=== PATIENT | male | born 1950 | race Caucasian/White ===

== ENCOUNTER 2020-09-04 06:39 | Outpatient (CLI) | payer MEDICARE, SELFPAY ==
[2020-09-04 07:38] LABS: Alanine Aminotransferase 22 U/L (4-50); Albumin Level 4.3 g/dL (3.5-5.1); Alkaline Phosphatase 67 U/L (38-126); Anion Gap 9 mmol/L (8-16); Aspartate Amino Transferase 28 U/L (17-59); Bilirubin,Total 0.6 mg/dL (0.2-1.3); Blood Urea Nitrogen 19 mg/dL (9-20); Calcium 9.8 mg/dL (8.4-10.2); Carbon Dioxide 27 mmol/L (22-30); Chloride 103 mmol/L (98-107); Cholesterol 101 mg/dL (0-200); Estimated Glomerular Filt Rate 60; Glucose 196 mg/dL (75-110); HDL Direct 37 mg/dL; Potassium 4.5 mmol/L (3.4-5.0); Sodium 139 mmol/L (137-145); Triglycerides 132 mg/dL (<150)
[2020-09-04 07:50] LABS: LDL Cholesterol Direct 47 mg/dL
[2020-09-04 07:56] LABS: Hemoglobin A1C 9.1 % (<5.7)
== END 2020-09-04 06:40 | disposition home or self-care (01) ==
PROVIDERS: PCP Emergency Medicine; Referring Provider Internal Medicine Cardiovascular Disease; Visit Provider Emergency Medicine
DX: E11.40 Type 2 diabetes mellitus with diabetic neuropathy, unspecified (principal)
CPT/HCPCS: 36415; 80053; 80061; 83036

== ENCOUNTER 2021-01-08 06:40 | Outpatient (CLI) | payer MEDICARE, SELFPAY ==
[2021-01-08 07:38] LABS: Alanine Aminotransferase 24 U/L (4-50); Albumin Level 4.2 g/dL (3.5-5.1); Alkaline Phosphatase 64 U/L (38-126); Anion Gap 8 mmol/L (8-16); Aspartate Amino Transferase 28 U/L (17-59); Bilirubin,Total 0.8 mg/dL (0.2-1.3); Blood Urea Nitrogen 17 mg/dL (9-20); Calcium 9.4 mg/dL (8.4-10.2); Carbon Dioxide 26 mmol/L (22-30); Chloride 102 mmol/L (98-107); Cholesterol 109 mg/dL (0-200); Estimated Glomerular Filt Rate > 60; Glucose 167 mg/dL (65-110); HDL Direct 32 mg/dL; Potassium 4.2 mmol/L (3.4-5.0); Sodium 136 mmol/L (137-145); Triglycerides 152 mg/dL (<150)
[2021-01-08 07:49] LABS: LDL Cholesterol Direct 49 mg/dL
[2021-01-08 08:14] LABS: Hemoglobin A1C 8.7 % (<5.7)
== END 2021-01-08 06:41 | disposition home or self-care (01) ==
PROVIDERS: PCP Emergency Medicine; Visit Provider Emergency Medicine
DX: E11.40 Type 2 diabetes mellitus with diabetic neuropathy, unspecified (principal)
CPT/HCPCS: 36415; 80053; 80061; 83036

== ENCOUNTER 2021-02-18 06:54 | Outpatient (CLI) | payer MEDICARE, SELFPAY ==
[2021-02-18 07:46] LABS: Alanine Aminotransferase 26 U/L (4-50); Albumin Level 4.3 g/dL (3.5-5.1); Alkaline Phosphatase 65 U/L (38-126); Anion Gap 10 mmol/L (8-16); Aspartate Amino Transferase 32 U/L (17-59); Bilirubin,Total 0.9 mg/dL (0.2-1.3); Blood Urea Nitrogen 15 mg/dL (9-20); Calcium 9.1 mg/dL (8.4-10.2); Carbon Dioxide 24 mmol/L (22-30); Chloride 103 mmol/L (98-107); Estimated Glomerular Filt Rate > 60; Glucose 175 mg/dL (65-110); Potassium 4.4 mmol/L (3.4-5.0); Sodium 137 mmol/L (137-145)
== END 2021-02-18 06:55 | disposition home or self-care (01) ==
LOC: ANHLAB 06:57
PROVIDERS: PCP Emergency Medicine; Visit Provider Emergency Medicine
DX: Z13.6 Encounter for screening for cardiovascular disorders (principal)
CPT/HCPCS: 36415; 80053

== ENCOUNTER 2021-08-13 06:53 | Outpatient (CLI) | payer MEDICARE, SELFPAY ==
[2021-08-13 07:16] LABS: Hemoglobin A1C 8.6 % (<5.7)
[2021-08-13 07:17] LABS: Cholesterol 111 mg/dL (0-200); HDL Direct 38 mg/dL; Triglycerides 157 mg/dL (<150)
[2021-08-13 07:27] LABS: LDL Cholesterol Direct 45 mg/dL
[2021-08-13 07:44] LABS: Creatinine Urine 109.5 mg/dL
[2021-08-13 07:49] LABS: MALB Creatinine Ratio 6.3 mg/g (0-30); Microalbumin Urine Random 6.9 mg/L (0-16.7)
== END 2021-08-13 06:54 | disposition home or self-care (01) ==
LOC: ANHLAB 06:55
PROVIDERS: PCP Emergency Medicine; Visit Provider Emergency Medicine
DX: E11.40 Type 2 diabetes mellitus with diabetic neuropathy, unspecified (principal)
CPT/HCPCS: 36415; 80061; 82043; 83036

== ENCOUNTER 2021-11-24 09:32 | Emergency (ER) | payer MEDICARE, SELFPAY ==
[2021-11-24 09:41] VITALS: BP 113/67; PULSE 120; RESP 16; TEMP 37.1; O2SAT 98
--- NOTE | 2021-11-24 09:46 | ED.ABDPAIN ---
HPI - Abdominal Pain General Stated Complaint: DIAHERRA/ABD PAIN Time Seen by Provider: 11/24/21 09:48 Source: patient, RN notes reviewed and old records reviewed Mode of arrival: ambulatory Limitations: no limitations History of Present Illness HPI narrative: 71-year-old male presents to the [facility] with diarrhea for 10 days along with lower abdominal pain. No treatment prior to arrival. Patient states that he tried getting in [place] Patient also stating that he is having some sinus congestion over the last few days. Denies any fevers. States that he is unable to sleep very well due to the discomfort in the diarrhea. Patient is extremely hard of hearing MD elicited complaint: abdominal pain Pertinent past history: myocardial infarction Onset (ago): day(s) (10) Location: diffuse (abdominal) Related Data Home Medications Medication Instructions Recorded Confirmed nitroglycerin 0.4 mg sublingual 0.4 mg sublingual Q5M PRN 05/08/20 08/16/21 tablet (Nitrostat) vit C 250 mg-vit E 90 mg-zinc 40 See Rx Instructions .Route .COMPLEX 05/08/20 08/16/21 mg-copper 1 [id number] capsule (PreserVision AREDS-2) Allergies Allergy/AdvReac Type Severity Reaction Status Date / Time No Known Allergies Allergy Verified 11/24/21 09:55 Review of Systems Review of Systems: All systems reviewed & are unremarkable except as noted in HPI and below Constitutional: Constitutional: Reports no additional constitutional complaints, Denies chills and Denies fever(s) Eyes: Eyes: Reports no additional eye complaints ENT: Reports system reviewed and no additional complaints, except as documented Cardiovascular: Cardiovascular: Reports no additional cardiovascular complaints Respiratory: Respiratory: Reports no additional respiratory complaints Gastrointestinal: Gastrointestinal: Reports as per HPI, Reports abdominal pain, Reports bloating and Reports diarrhea Musculoskeletal: Musculoskeletal: Reports no additional musculoskeletal complaints Integumentary/Breasts: Skin/Breast: Reports system reviewed and no additional complaints, except as docu Neurologic: Reports system reviewed and no additional complaints, except as documented Psychiatric: Psychiatric: Reports no additional psychiatric complaints Allergic/Immunologic: Allergic/Immunologic: Reports no additional allergic/immunologic complaints [facility] Past Medical History Medical History (Updated 11/24/21 @ 10:10 by Lacie Forman, TOM) Cardiac defibrillator in place (~2013) Diarrhea Heart disease HLD (hyperlipidemia) Type 2 diabetes mellitus with diabetic neuropathy, unspecified Surgical History Surgical History History of open heart surgery (~2003) Status post surgical removal of malignant neoplasm of skin (~2019) Family History Family History Father , 75 Heart attack Social History Social History Social History: Patient drinks little caffeine Smoking status: Never smoker Alcohol intake: never Substance use: never Comments At the time of my signature, I reviewed and agree with the nursing past medical, surgical, social, and family history. There is no relevant family history pertinent to the patient complaint. Exam Const: General: no acute distress, alert and ill appearing chronically Nutritional Appearance: well nourished Orientation/consciousness: patient oriented x3 Limitations: no limitations Other: [place] HENMT: Head: normal to inspection Ears: external ears normal Eyes: General: appearance normal, both eyes and all related structures Pupils: Equal, round and reactive pupils present Neck: Neck: normal visual inspection, no lymphadenopathy and no meningeal signs Chest: Chest palpation & inspection: normal inspection of t
== END 2021-11-24 10:00 | disposition short-term general hospital (02) ==
PROVIDERS: Emergency Provider Nurse Practitioner; PCP Emergency Medicine
DX: R19.7 Diarrhea, unspecified (principal); R10.84 Generalized abdominal pain; E78.5 Hyperlipidemia, unspecified; E11.42 Type 2 diabetes mellitus with diabetic polyneuropathy; Z95.810 Presence of automatic (implantable) cardiac defibrillator
CPT/HCPCS: 99212; G0463

== ENCOUNTER 2021-11-24 10:15 | Emergency (ER) | payer MEDICARE, SELFPAY ==
[2021-11-24 10:19] VITALS: BP 114/83; PULSE 108; RESP 20; TEMP 36.7; O2SAT 98
--- NOTE | 2021-11-24 10:28 | ED.NAVMDI ---
HPI - Nausea/Vomiting/Diarrhea General Chief complaint: Abdominal Pain Stated complaint: abd pain Time Seen by Provider: 11/24/21 10:20 History of Present Illness HPI Narrative: Pt presents with numerous episodes of diarrhea last night and today to the point where he has had two accidents trying to get to toilet. Pt is nauseated a little but has not vomited. Pt denies fever. Pt has some crampy abdominal pain when having diarrhea but none now. Pt denies blood in stool. Related Data Home Medications Medication Instructions Recorded Confirmed nitroglycerin 0.4 mg sublingual 0.4 mg sublingual Q5M PRN Chest 05/08/20 11/24/21 tablet (Nitrostat) Pain vit C 250 mg-vit E 90 mg-zinc 40 See Rx Instructions .Route .COMPLEX 05/08/20 11/24/21 mg-copper 1 [id number] capsule (PreserVision AREDS-2) Allergies Allergy/AdvReac Type Severity Reaction Status Date / Time No Known Allergies Allergy Verified 11/24/21 09:55 Review of Systems Review of Systems: All systems reviewed & are unremarkable except as noted in HPI and below PMFSH Past Medical History Medical History (Updated 11/24/21 @ 11:09 by Kar Samson III, ) Cardiac defibrillator in place (~2013) Diarrhea Heart disease HLD (hyperlipidemia) Type 2 diabetes mellitus with diabetic neuropathy, unspecified Surgical History Surgical History History of open heart surgery (~2003) Status post surgical removal of malignant neoplasm of skin (~2019) Family History Family History Father , 75 Heart attack Social History Social History Social History: Patient drinks little caffeine Smoking status: Never smoker Alcohol intake: never Substance use: never Exam Const: General: cooperative, healthy appearing, comfortable and no acute distress Nutritional Appearance: average body habitus Orientation/consciousness: patient oriented x3 Limitations: no limitations HENMT: Mouth: Yes Normal oral and palatal mucosa present Eyes: General: appearance normal, both eyes and all related structures Neck: Neck: normal visual inspection, full ROM, no lymphadenopathy and no meningeal signs Resp: Effort & Inspection: normal respiratory effort Auscultation: clear to auscultation bilaterally Cardio: Rate: regular rate Rhythm: regular rhythm GI: Inspection: normal to inspection GI Palp: Yes abdominal tenderness (none) and Yes Soft to palpation Percussion: Yes normal to percussion Auscultation: normal bowel sounds Skin: General skin exam: normal color and no rashes or lesions noted Neuro: General: patient oriented x3 Speech: normal speech Gait exam (Neuro): Normal gait present Motor exam (neuro): 5/5 motor strength present throughout Sensory Exam: normal sensation Extrem: General: normal to inspection, full ROM and no clubbing, cyanosis or edema Psych: Appearance: grossly normal Mental Status: mental status grossly normal Speech and movement: Normal speech and movement present Affect: normal affect Attitude: cooperative Thought process: Normal thought process present Thought content: Yes Normal thought content present Insight: Good insight present (Psych) Judgement: Good judgement present (Psych) Course Vital Signs Vital signs: Vital Signs Temperature 98.0 F 11/24/21 10:19 Pulse Rate 108 H 11/24/21 10:19 Respiratory Rate 20 11/24/21 10:19 Blood Pressure 114/83 11/24/21 10:19 Pulse Oximetry 98 11/24/21 10:19 Oxygen Delivery Room Air 11/24/21 10:19 Temperature 98.0 F 11/24/21 10:19 Pulse Rate 88 11/24/21 11:23 Respiratory Rate 18 11/24/21 11:23 Blood Pressure 122/68 11/24/21 11:23 Pulse Oximetry 99 11/24/21 11:23 Oxygen Delivery Room Air 11/24/21 10:19 MDM - Nausea/Vomiting/Diarrhea Lab Data Result diagrams: 10/30
[2021-11-24 10:38] LABS: Basophils Percent Auto 0.3 % (0.2-1.2); Eosinophils Absolute Auto 0.7 K/mm3 (0-0.3); Eosinophils Percent Auto 7.1 % (0-4.4); Hemoglobin 15.7 g/dL (14.0-18.0); Immature Granulocyte Absolute 0.08 K/mm3 (0.00-0.031); Immature Granulocyte Percent A 0.8 % (0-0.5); Lymphocytes Absolute Auto 2.07 K/mm3 (0.9-3.2); Lymphocytes Percent Auto 21.7 % (18.3-44.2); Mean Corpuscular HGB Conc 32.7 g/dl (32-36); Mean Corpuscular Volume 91.6 fl (80-100); Mean Platelet Volume 10.4 fl (7.4-10.4); Monocytes Absolute Auto 0.9 K/mm3 (0.1-0.6); Monocytes Percent Auto 9.5 % (2.6-8.5); Neutrophils Absolute Auto 5.8 K/mm3 (1.3-6.7); Neutrophils Percent Auto 60.6 % (45.5-73.1); Platelet Count Result 215 k/mm3 (150-375); Red Blood Count 5.24 M/mm3 (4.6-6.20); Red Cell Distribution Width 13.2 % (11.5-14.5); White Blood Count 9.6 K/mm3 (4.5-10.0)
[2021-11-24] MEDS: ONDANSETRON INJ 4 MG/2 ML VIAL IV PUSH (10:42)
[2021-11-24] MEDS: SODIUM CHLORIDE 0.9% IV 1,000 ML 999 ML IV CONT (10:42)
[2021-11-24 10:49] LABS: Alanine Aminotransferase 19 U/L (6-50); Albumin Level 4.2 g/dL (3.5-5.1); Alkaline Phosphatase 79 U/L (38-126); Anion Gap 14 mmol/L (8-16); Aspartate Amino Transferase 23 U/L (17-59); Bilirubin,Total 0.8 mg/dL (0.2-1.3); Blood Urea Nitrogen 26 mg/dL (9-20); Calcium 8.9 mg/dL (8.4-10.2); Carbon Dioxide 17 mmol/L (22-30); Chloride 104 mmol/L (98-107); Estimated Glomerular Filt Rate > 60; Glucose 202 mg/dL (65-110); Potassium 4.4 mmol/L (3.4-5.0); Sodium 135 mmol/L (137-145)
[2021-11-24 11:23] VITALS: BP 122/68; PULSE 88; RESP 18; O2SAT 99
== END 2021-11-24 11:24 | disposition home or self-care (01) ==
PROVIDERS: Emergency Provider Emergency Medicine; PCP Emergency Medicine
DX: R19.7 Diarrhea, unspecified (principal); E11.40 Type 2 diabetes mellitus with diabetic neuropathy, unspecified; Z95.810 Presence of automatic (implantable) cardiac defibrillator
CPT/HCPCS: 36415; 80053; 85025; 96361; 96374; 99284; J2405; J7030

== ENCOUNTER 2022-01-05 07:53 | Outpatient (CLI) | payer MEDICARE, SELFPAY ==
[2022-01-05 08:41] LABS: Alanine Aminotransferase 19 U/L (6-50); Albumin Level 4.3 g/dL (3.5-5.1); Alkaline Phosphatase 58 U/L (38-126); Anion Gap 11 mmol/L (8-16); Aspartate Amino Transferase 25 U/L (17-59); Bilirubin,Total 0.5 mg/dL (0.2-1.3); Blood Urea Nitrogen 18 mg/dL (9-20); Calcium 9.4 mg/dL (8.4-10.2); Carbon Dioxide 26 mmol/L (22-30); Chloride 105 mmol/L (98-107); Cholesterol 105 mg/dL (0-200); Estimated Glomerular Filt Rate > 60; Glucose 152 mg/dL (65-110); HDL Direct 33 mg/dL; Hemoglobin A1C 7.9 % (<5.7); Sodium 142 mmol/L (137-145); Triglycerides 129 mg/dL (<150)
[2022-01-05 08:52] LABS: LDL Cholesterol Direct 47 mg/dL
[2022-01-05 08:59] LABS: Creatinine Urine 110.5 mg/dL
[2022-01-05 09:03] LABS: MALB Creatinine Ratio 19.5 mg/g (0-30); Microalbumin Urine Random 21.6 mg/L (0-16.7)
[2022-01-05 09:13] LABS: Prostate Specific Antigen 3.6 ng/mL (< OR = 4.0)
== END 2022-01-05 07:54 | disposition home or self-care (01) ==
PROVIDERS: PCP Emergency Medicine; Visit Provider Emergency Medicine
DX: Z13.6 Encounter for screening for cardiovascular disorders (principal); Z12.5 Encounter for screening for malignant neoplasm of prostate; E11.40 Type 2 diabetes mellitus with diabetic neuropathy, unspecified
CPT/HCPCS: 36415; 80053; 80061; 82043; 83036; 84153; G0103

== ENCOUNTER 2022-08-22 12:19 | Emergency (ER) | payer MEDICARE, SELFPAY ==
--- NOTE | ~2022-08-22 | US_ITS ---
EXAMINATION: US venous doppler UE RT DATE: 08/22/2022 13:31 INDICATION: Right upper limb swelling. TECHNIQUE: Grayscale ultrasound images without and with compression and Doppler ultrasound images of the right upper extremity veins were obtained. COMPARISON: None. FINDINGS: The visualized portions of the right internal jugular vein, subclavian vein, axillary vein, brachial veins, basilic vein, cephalic vein, radial vein, and ulnar vein are patent. IMPRESSION: 1. No deep venous thrombosis. Reviewed, dictated and finalized at location A.
--- NOTE | ~2022-08-22 | XR_ITS ---
EXAMINATION: XR elbow RT min 3V INDICATION: Elbow discoloration TECHNIQUE: Four views of the right elbow are obtained. COMPARISON: None available FINDINGS: Bone alignment is normal. There is no fracture. There is soft tissue swelling overlying the olecranon. IMPRESSION: 1. Soft tissue swelling without acute osseous abnormality. Reviewed, dictated and finalized at location B.
[2022-08-22 12:22] VITALS: BP 129/84; PULSE 98; RESP 18; TEMP 36.6; O2SAT 97
--- NOTE | 2022-08-22 12:46 | ED.UPPEXIN ---
HPI - Extremity Injury (Upper) General Chief Complaint: Extremity Injury, Upper Stated Complaint: bruising to right elbow Time Seen by Provider: 08/22/22 12:30 History of Present Illness HPI narrative: Patient is a 72-year-old male presenting with right arm swelling and bruising. Patient's daughter is at bedside and is assisting with history. Patient states that he hit his elbow on the wall as he was getting out of bed sometime last week. After this he developed swelling in that elbow. He was seen at urgent care last week who diagnosed him with bursitis. He was started on antibiotics and steroids and told to be reevaluated if his symptoms did not improve by today. Patient's daughter states that they went to lunch today and she asked to see his elbow. She noticed that it was still swollen and now had bruising down his forearm and into his upper arm. They became concerned for a blood clot. Patient states that he has not had any recurrence of pain. He denies decreased ROM. No numbness or weakness. No falls or new trauma. Denies further complaints. Related Data Home Medications Medication Instructions Recorded Confirmed vit C 250 mg-vit E 90 mg-zinc 40 See Rx Instructions .Route .COMPLEX 05/08/20 11/24/21 mg-copper 1 [id number] capsule (PreserVision AREDS-2) Allergies Allergy/AdvReac Type Severity Reaction Status Date / Time semaglutide [From Rybelsus] Allergy Intermediate Itching Verified 08/24/22 10:33 Review of Systems Review of Systems: All systems reviewed & are unremarkable except as noted in HPI and below PMFSH Past Medical History Medical History Cardiac defibrillator in place (~2013) Diarrhea Heart disease HLD (hyperlipidemia) Type 2 diabetes mellitus with diabetic neuropathy, unspecified Surgical History Surgical History History of open heart surgery (~2003) Status post surgical removal of malignant neoplasm of skin (~2019) Family History Family History Father , 75 Heart attack Social History Social History Social History: Patient drinks little caffeine Smoking status: Never smoker Second hand tobacco smoke exposure: No Alcohol intake: never Substance use: never Substance use type: does not use Living arrangements: with family Occupation/Education: retired Gender identity (if verbalized by the patient): Male Spiritual care concerns: No Agree to blood products: Yes Exam Narrative: GENERAL: Well-appearing, well-nourished, and in no acute distress. Pleasant and cooperative HEAD: Normocephalic, atraumatic. EYES: PERRLA and EOMI. ENT: Nares clear, no rhinorrhea or epistaxis. Mucous membranes moist. NECK: Supple. CHEST: Clear to auscultation. No respiratory distress. HEART: Regular rate and rhythm. No murmur heard. Normal peripheral pulses. ABDOMEN: Soft, nontender, nondistended, normal active bowel sounds. EXTREMITIES: Normal range of motion. No edema. Right elbow with surrounding ecchymosis that extends into his right forearm and into the right upper arm, appears to be in varying stages of healing; right olecranon bursa is swollen but nontender, ROM is intact, radial pulses 2+ bilaterally SKIN: Warm, dry, no rash. NEURO: No focal deficits. Alert and oriented x3. PSYCH: Normal mood and affect. Course Vital Signs Vital signs: Vital Signs Temperature 97.9 F 08/22/22 12:22 Pulse Rate 98 08/22/22 12:22 Respiratory Rate 18 08/22/22 12:22 Blood Pressure 129/84 08/22/22 12:22 Pulse Oximetry 97 08/22/22 12:22 Oxygen Delivery Room Air 08/22/22 12:22 Temperature 97.9 F 08/22/22 12:22 Pulse Rate 71 08/22/22 15:24 Respiratory Rate 17 08/22/22 15:24 Blood Pressure 122/87
[2022-08-22 15:24] VITALS: BP 122/87; PULSE 71; RESP 17; O2SAT 100
== END 2022-08-22 15:25 | disposition home or self-care (01) ==
PROVIDERS: Emergency Provider Emergency Medicine; PCP Emergency Medicine
DX: M70.31 Other bursitis of elbow, right elbow (principal); S50.11XA Contusion of right forearm, initial encounter; W22.8XXA Striking against or struck by other objects, initial encounter; Z95.810 Presence of automatic (implantable) cardiac defibrillator; E78.5 Hyperlipidemia, unspecified; E11.9 Type 2 diabetes mellitus without complications; M79.89 Other specified soft tissue disorders
CPT/HCPCS: 73080; 93971; 99284

== ENCOUNTER 2023-11-10 01:36 | Day surgery (SDC) | payer MEDICARE, SELFPAY ==
[2023-10-27 10:50] VITALS: BMI 32.5
[2023-11-10 10:18] VITALS: BP 112/75; PULSE 93; RESP 18; TEMP 36; O2SAT 95
[2023-11-10 10:23] LABS: Glucose Point of Care 164 mg/dl (65-105)
[2023-11-10] MEDS: LACTATED RINGERS 1,000 ML 150 ML IV CONT (10:31)
--- NOTE | 2023-11-10 10:50 | WPDANESEPPF ---
Anes - Initial Pre Proc Eval Procedure: Operation Date: 11/10/23 14:30 Proposed Procedures p Colonoscopy - Sathish Zambrano MD Date/Time: 11/10/23 10:50 Surgeon: Sathish Zambrano MD Pre Op Diagnosis: other hemorrhoids Patient Data Age: 73 Gender: M Height: 1.83 m Weight: 103.3 kg Last Vital Signs Temp 96.8 F L 11/10/23 10:18 Pulse 93 11/10/23 10:18 Resp 18 11/10/23 10:18 BP 112/75 11/10/23 10:18 Pulse Ox 95 11/10/23 10:18 O2 Del Method Room Air 11/10/23 10:18 Allergies Allergy/AdvReac Type Severity Reaction Status Date / Time No Known Allergies Allergy Verified 11/10/23 10:16 Home Medications Medication Instructions Recorded Confirmed Type aspirin 81 mg tablet,delayed 81 mg PO DAILY #90 tabs 05/08/20 11/10/23 Rx release (Adult Low Dose Aspirin) vit C 250 mg-vit E 90 mg-zinc 40 See Rx Instructions .Route .COMPLEX 05/08/20 11/10/23 History mg-copper 1 [id number]-yoblyp capsule (PreserVision AREDS-2) nitroglycerin 0.4 mg sublingual 0.4 mg sublingual Q5M PRN Chest 02/23/22 11/10/23 Rx tablet (Nitrostat) Pain #30 tabs empagliflozin 10 mg tablet 10 mg PO DAILY 09/07/22 11/10/23 History (Jardiance) atorvastatin 40 mg tablet See Rx Instructions .Route 03/03/23 11/10/23 Rx .COMPLEX #90 tabs carvedilol 25 mg tablet See Rx Instructions .Route 03/03/23 11/10/23 Rx .COMPLEX #360 tabs lisinopril 2.5 mg tablet See Rx Instructions .Route 03/08/23 11/10/23 Rx .COMPLEX #90 tabs fenofibrate 160 mg tablet See Rx Instructions .Route 04/17/23 11/10/23 Rx .COMPLEX #90 tabs blood sugar diagnostic (OneTouch #200 strips 06/05/23 11/10/23 Rx Ultra Test strips) glipizide 5 mg tablet See Rx Instructions .Route 08/28/23 11/10/23 Rx .COMPLEX #180 tabs metformin 500 mg tablet See Rx Instructions .Route 10/06/23 11/10/23 Rx .COMPLEX #360 tabs sitagliptin phosphate 50 mg tablet See Rx Instructions .Route 10/06/23 11/10/23 Rx (Januvia) .COMPLEX #30 tabs Laboratory Tests 11/10/23 10:20 POC Capillary Glucose 164 H mg/dl (65-105) Patient hx anesthesia problems: none Family hx anesthesia problems: none Results Review: All pre-operative results and documents have been reviewed as part of the pre-operative evaluation. [facility] Past Medical History Medical History Cardiac defibrillator in place (~2013) Diarrhea Heart disease HLD (hyperlipidemia) Type 2 diabetes mellitus with diabetic neuropathy, unspecified Surgical History Surgical History History of open heart surgery (~2003) Status post surgical removal of malignant neoplasm of skin (~2019) Family History Family History Father , 75 Heart attack Social History Social History Social History: Patient drinks little caffeine Smoking status: Never smoker Second hand tobacco smoke exposure: No Alcohol intake: never Substance use: never Substance use type: does not use Do You Feel Safe in your Home?: Yes Lack of Transportation: No Lack of Food: Never True Current Housing: I Have Housing Concerned About Future Housing: No Difficulty Paying Gas/Electric Bills: No Difficulty Paying for Meds: No Currently Unemployed: No Education: High School Diploma/GED Difficulty w/ Childcare or Family Care: No Living arrangements: alone Occupation/Education: retired Gender identity (if verbalized by the patient): Male Spiritual care concerns: No Agree to blood products: Yes Anes - Eval Final PreProcedure Day of Procedure 11/10/23 10:50 Patient weight: obese Heart: regular rate and rhythm Lungs: clear to auscultation Airway: Mallampati scale class III Neurological: alert and oriented Last oral intake: >/
--- NOTE | 2023-11-10 11:06 | PM.HPGS ---
History of Present Illness History of Present Illness Consent: Risks, benefits, and alternatives have been discussed and questions answered. Patient agrees to proceed with procedure. Chief complaint: other hemorrhoids Narrative: Naseem Chavez Jr. is a 73 year old male with colon polyp 5 years ago, also lately with alternating diarrhea and constipation. Review of Systems Review of Systems: All systems reviewed & are unremarkable except as noted in HPI and below PMFSH Past Medical History Medical History (Updated 11/10/23 @ 11:07 by Sathish Zambrano MD) Alternating constipation and diarrhea Cardiac defibrillator in place (~2013) Diarrhea Heart disease HLD (hyperlipidemia) Polyp of colon Type 2 diabetes mellitus with diabetic neuropathy, unspecified Surgical History Surgical History History of open heart surgery (~2003) Status post surgical removal of malignant neoplasm of skin (~2019) Family History Family History Father , 75 Heart attack Social History Social History Social History: Patient drinks little caffeine Smoking status: Never smoker Second hand tobacco smoke exposure: No Alcohol intake: never Substance use: never Substance use type: does not use Do You Feel Safe in your Home?: Yes Lack of Transportation: No Lack of Food: Never True Current Housing: I Have Housing Concerned About Future Housing: No Difficulty Paying Gas/Electric Bills: No Difficulty Paying for Meds: No Currently Unemployed: No Education: High School Diploma/GED Difficulty w/ Childcare or Family Care: No Living arrangements: alone Occupation/Education: retired Gender identity (if verbalized by the patient): Male Spiritual care concerns: No Agree to blood products: Yes Meds Home Medications and Allergies Home Medications Medication Instructions Recorded Confirmed Type aspirin 81 mg tablet,delayed 81 mg PO DAILY #90 tabs 05/08/20 11/10/23 Rx release (Adult Low Dose Aspirin) vit C 250 mg-vit E 90 mg-zinc 40 See Rx Instructions .Route .COMPLEX 05/08/20 11/10/23 History mg-copper 1 [id number] capsule (PreserVision AREDS-2) nitroglycerin 0.4 mg sublingual 0.4 mg sublingual Q5M PRN Chest 02/23/22 11/10/23 Rx tablet (Nitrostat) Pain #30 tabs empagliflozin 10 mg tablet 10 mg PO DAILY 09/07/22 11/10/23 History (Jardiance) atorvastatin 40 mg tablet See Rx Instructions .Route 03/03/23 11/10/23 Rx .COMPLEX #90 tabs carvedilol 25 mg tablet See Rx Instructions .Route 03/03/23 11/10/23 Rx .COMPLEX #360 tabs lisinopril 2.5 mg tablet See Rx Instructions .Route 03/08/23 11/10/23 Rx .COMPLEX #90 tabs fenofibrate 160 mg tablet See Rx Instructions .Route 04/17/23 11/10/23 Rx .COMPLEX #90 tabs blood sugar diagnostic (OneTouch #200 strips 06/05/23 11/10/23 Rx Ultra Test strips) glipizide 5 mg tablet See Rx Instructions .Route 08/28/23 11/10/23 Rx .COMPLEX #180 tabs metformin 500 mg tablet See Rx Instructions .Route 10/06/23 11/10/23 Rx .COMPLEX #360 tabs sitagliptin phosphate 50 mg tablet See Rx Instructions .Route 10/06/23 11/10/23 Rx (Januvia) .COMPLEX #30 tabs Allergies Allergy/AdvReac Type Severity Reaction Status Date / Time No Known Allergies Allergy Verified 11/10/23 10:16 Vital Signs Vital Signs - 24 hr 11/10/23 10:18 Temperature 96.8 F L Pulse Rate 93 Respiratory Rate 18 Blood Pressure 112/75 Pulse Oximetry 95 Oxygen Delivery Room Air Exam Const: General: comfortable and no acute distress HENMT: Face/Nose/Sinus: Normal nares present Eyes: General: appearance normal, both eyes and all related structures Neck: Neck: no JVD Resp: Auscultation: clear to auscultation bilaterally Cardio: Rate: regular rate Rhythm: regular rhythm
[2023-11-10 11:19] VITALS: BP 116/77; PULSE 80; RESP 22; O2SAT 95
[2023-11-10 11:29] VITALS: BP 118/84; PULSE 81; RESP 18; O2SAT 100
[2023-11-10 11:39] VITALS: BP 127/90; PULSE 80; RESP 21; O2SAT 100
== END 2023-11-10 11:48 | disposition home or self-care (01) ==
PROVIDERS: PCP Emergency Medicine; Visit Provider Internal Medicine Gastroenterology
PROC: 0DJD8ZZ Inspection of Lower Intestinal Tract, Via Natural or Artificial Opening Endoscopic (ICD-10-PCS; CPT 45378; principal; 2023-11-10 14:30)
DX: K64.8 Other hemorrhoids (principal); I51.9 Heart disease, unspecified; E78.5 Hyperlipidemia, unspecified; E11.40 Type 2 diabetes mellitus with diabetic neuropathy, unspecified; E66.9 Obesity, unspecified; Z68.30 Body mass index [BMI] 30.0-30.9, adult; Z79.82 Long term (current) use of aspirin; Z79.84 Long term (current) use of oral hypoglycemic drugs; Z95.810 Presence of automatic (implantable) cardiac defibrillator; Z86.010 Personal history of colon polyps; Z85.828 Personal history of other malignant neoplasm of skin; Z86.79 Personal history of other diseases of the circulatory system
CPT/HCPCS: 45380; 82948; 88305; J2704; J7120